=== PATIENT | female | born 1965 | race Caucasian/White ===

== ENCOUNTER 2017-11-19 07:36 | Day surgery (SDC) | payer OTHER | END 2017-11-19 12:40 | disposition home or self-care (01) | LOC: AMB-ENDOS 07:36 | DX: C20 Malignant neoplasm of rectum (principal); I10 Essential (primary) hypertension; R73.01 Impaired fasting glucose; E66.8 Other obesity; D64.89 Other specified anemias; Z93.2 Ileostomy status ==

== ENCOUNTER 2020-03-08 06:30 | Day surgery (SDC) | payer OTHER | END 2020-03-08 13:05 | disposition home or self-care (01) | LOC: AMB-ENDOS 06:30 | DX: C20 Malignant neoplasm of rectum (principal) ==